=== PATIENT | female | born 1970 | race Caucasian/White ===

== ENCOUNTER → 2016-06-02 09:39 | Outpatient (CLI) | payer OTHER | END | disposition home or self-care (01) | LOC: D.RAD 05-27 10:00 | DX: Z02.71 Encounter for disability determination (principal) ==

== ENCOUNTER 2017-12-09 06:00 | Day surgery (SDC) | payer MEDICAID ==
[2017-12-03 13:53] LABS: BASOPHILS 0.3 % (0-2); EOSINOPHILS 3.3 % (0-7); HEMATOCRIT 39.3 % (36.0-48.0); HEMOGLOBIN 13.1 g/dL (12-16); IMMATURE GRANULOCYTES 0.3 % (0-5); LYMPHOCYTES 39.2 % (15-50); MCH 32.7 pg (26.0-34.0); MCHC 33.3 g/dL (31.0-37.0); MEAN PLATELET VOLUME 10.2 fL (7.4-10.4); MONOCYTES 8.6 % (2-11); NEUTROPHILS 48.3 % (40-80); PLATELET COUNT 265 10x3/uL (130-400); RBC 4.01 10x6/uL (4.00-5.40); WBC 7.9 10x3/uL (4.8-10.8)
[2017-12-03 14:01] LABS: CALC OSMOLALITY 279 mosm/kg (275-300); CARBON DIOXIDE 28.8 mmol/L (21.0-32.0); CHLORIDE - SERUM 105 mmol/L (98-107); CREATININE - SERUM 0.6 mg/dL (0.6-1.3); GLUCOSE 123 mg/dL (74-106); SODIUM 140 mmol/L (136-145); UREA NITROGEN 13 mg/dL (7-18); eGFR NON AFRICAN AMERICAN > 90 mL/min (90-120)
[2017-12-03 14:03] LABS: POTASSIUM - SERUM 4.8 mmol/L (3.5-5.1)
[~2017-12-09] VITALS: Ht 144.8 cm; Wt 79.4 kg
[~2017-12-09 06:00] MED LIST: BAYER CHEWABLE81 MG PO; CYCLOBENZAPRINE10 MG PO; LIPITOR40 MG PO; NEURONTIN600 MG PO; PROZAC40 MG PO; REXULTI1 MG PO; XANAX1 MG PO
[2017-12-09 06:53] VITALS: BP 110/73; Ht 144.8 cm; Wt 79.4 kg
== END 2017-12-09 11:40 | disposition home or self-care (01) ==
LOC: D.OPS 06:00 → D.PAN 07:30 → D.OPS 07:30
PROVIDERS: Orthopaedic Surgery
DX: M75.101 Unspecified rotator cuff tear or rupture of right shoulder, not specified as traumatic (principal); S43.401A Unspecified sprain of right shoulder joint, initial encounter; M65.811 Other synovitis and tenosynovitis, right shoulder; M13.811 Other specified arthritis, right shoulder; M75.41 Impingement syndrome of right shoulder; Z01.812 Encounter for preprocedural laboratory examination